=== PATIENT | male | born 1975 | race Caucasian/White ===

== ENCOUNTER 2016-07-27 18:17 | Emergency (ER) | payer MEDICAID ==
[~2016-07-27] VITALS: Ht 177.8 cm; Wt 83.9 kg
[2016-07-27] MEDS ORDERED: IBUPROFEN 600 MG TABLET PO ONE ×2 (19:37→20:00)
[2016-07-27 22:01] VITALS: BP 145/87
== END 2016-07-27 22:02 | disposition home or self-care (01) ==
LOC: ER 18:20
DX: R07.81 Pleurodynia (principal); J45.909 Unspecified asthma, uncomplicated; Y04.2XXA Assault by strike against or bumped into by another person, initial encounter; Y93.89 Activity, other specified; Y92.89 Other specified places as the place of occurrence of the external cause; Y99.8 Other external cause status
CPT/HCPCS: 71010; 99283; A4606; Z7610